=== PATIENT | female | born 1985 | race Caucasian/White ===

== ENCOUNTER 2018-09-11 18:41 | Emergency (ER) | payer MEDICAID, OTHER ==
[~2018-09-11] VITALS: Ht 157.5 cm; Wt 81.6 kg
[2018-09-11 18:52] VITALS: BP 130/76
[2018-09-11] MEDS ORDERED: cefTRIAXone SOD 1,000 MG VL IM ONE (21:00)
[2018-09-11] MEDS ORDERED: methylPREDNISolone SOD SUCC 125 MG/2 ML VL IM ONE (21:00)
[2018-09-11] MEDS ORDERED: LIDOCAINE 1% HCL (LOCAL ANESTH.) INJ 20ML MDV IJ ONE (21:45)
== END 2018-09-11 21:35 | disposition home or self-care (01) ==
LOC: ER 18:41
DX: J06.9 Acute upper respiratory infection, unspecified (principal)
CPT/HCPCS: 96372; 99283; J0696; J2930